=== PATIENT | female | born 1990 | race Caucasian/White ===

== ENCOUNTER 2017-08-23 03:09 | Emergency (ER) | payer MEDICAID ==
[2017-08-23] MEDS: KETOROLAC 60 MG INJ IM (04:48)
== END 2017-08-23 05:07 | disposition home or self-care (01) ==
LOC: FTE 03:09
DX: M25.561 Pain in right knee (principal); E11.9 Type 2 diabetes mellitus without complications
CPT/HCPCS: 29505; 96372; 99284-25

== ENCOUNTER 2017-10-08 05:48 | Emergency (ER) | payer MEDICAID ==
[2017-10-08 06:46] LABS: URINE BLOOD (Dip) POC 1+ (NEGATIVE); URINE GLUCOSE (Dip) POC Negative (NEGATIVE); URINE KETONES (Dip) POC Negative (NEGATIVE); URINE LEUKOCYTE EST (Dip) POC 2+ (NEGATIVE); URINE NITRITE (Dip) POC Negative (NEGATIVE); URINE TOTAL PROTEIN POC 2+ (NEGATIVE)
[2017-10-08] MEDS: IBUPROFEN 800 MG TAB PO (06:57)
[2017-10-08] MEDS: ONDANSETRON (ODT) 4 MG TAB ODT (06:57)
== END 2017-10-08 07:04 | disposition home or self-care (01) ==
LOC: FTE 05:48
DX: N39.0 Urinary tract infection, site not specified (principal); E11.9 Type 2 diabetes mellitus without complications
CPT/HCPCS: 81003; 81025; 99284

== ENCOUNTER 2017-10-31 03:54 | Emergency (ER) | payer MEDICAID ==
[2017-10-31] MEDS: FAMOTIDINE 20 MG TAB PO (06:28)
[2017-10-31] MEDS: METHYLPREDNISOLONE 125 MG INJ IM (06:28)
[2017-10-31] MEDS: EPINEPHrine 1 MG INJ SC (06:28)
[2017-10-31] MEDS: DIPHENHYDRAMINE 50 MG INJ IM (06:28)
== END 2017-10-31 07:11 | disposition home or self-care (01) ==
LOC: FTE 03:54
DX: L30.9 Dermatitis, unspecified (principal); E11.9 Type 2 diabetes mellitus without complications
CPT/HCPCS: 96372; 99284-25

== ENCOUNTER 2017-12-26 01:57 | Emergency (ER) | payer MEDICAID ==
[2017-12-26] MEDS: IBUPROFEN 600 MG TAB PO (04:07)
== END 2017-12-26 09:21 | disposition home or self-care (01) ==
LOC: FTE 01:57
DX: R51 Headache (principal); J34.89 Other specified disorders of nose and nasal sinuses; R04.0 Epistaxis; E11.9 Type 2 diabetes mellitus without complications
CPT/HCPCS: 70140; 72100; 81025; 99284-25

== ENCOUNTER 2018-04-19 02:34 | Emergency (ER) | payer MEDICAID ==
[2018-04-19 03:36] LABS: URINE PH (Dip) POC 6.5 (5.0-8.5)
[2018-04-19 03:36] LABS: URINE BLOOD (Dip) POC Negative (NEGATIVE); URINE GLUCOSE (Dip) POC Negative (NEGATIVE); URINE KETONES (Dip) POC Negative (NEGATIVE); URINE LEUKOCYTE EST (Dip) POC Negative (NEGATIVE); URINE NITRITE (Dip) POC Negative (NEGATIVE); URINE TOTAL PROTEIN POC Negative (NEGATIVE)
[2018-04-19] MEDS: KETOROLAC 30 MG INJ IM (03:49)
== END 2018-04-19 05:27 | disposition home or self-care (01) ==
LOC: FTE 02:34
DX: S89.91XA Unspecified injury of right lower leg, initial encounter (principal); E11.9 Type 2 diabetes mellitus without complications; W01.198A Fall on same level from slipping, tripping and stumbling with subsequent striking against other object, initial encounter; Y92.511 Restaurant or cafe as the place of occurrence of the external cause
CPT/HCPCS: 73562; 81003; 81025; 96372; 99284-25

== ENCOUNTER 2018-05-07 04:47 | Emergency (ER) | payer MEDICAID | END 2018-05-07 09:00 | disposition home or self-care (01) | LOC: FTE 04:47 | DX: N63.20 Unspecified lump in the left breast, unspecified quadrant (principal); E11.9 Type 2 diabetes mellitus without complications | CPT/HCPCS: 76642; 99284-25 ==